=== PATIENT | male | born 1995 | race Caucasian/White ===

== ENCOUNTER 2016-11-10 10:30 | Emergency (ER) | payer SELFPAY ==
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
--- NOTE | 2016-11-10 11:52 | RAD ---
Indication: Back pain. 2 views of the thoracolumbar spine demonstrates vertebral bodies to be normal in height. No evidence of fracture is noted. Pedicles appear intact. IMPRESSION: Unremarkable thoracolumbar spine.
== END 2016-11-10 12:04 | disposition home or self-care (01) ==
LOC: UCEAST 10:30
DX: M54.5 Low back pain (principal); M54.6 Pain in thoracic spine; J45.909 Unspecified asthma, uncomplicated; Z88.0 Allergy status to penicillin; F12.90 Cannabis use, unspecified, uncomplicated; F17.210 Nicotine dependence, cigarettes, uncomplicated
CPT/HCPCS: 72080; 99202; G0463

== ENCOUNTER 2016-12-16 20:06 | Emergency (ER) | payer SELFPAY ==
[2016-12-16] MEDS ORDERED: Ammonia Inhalant* 1 EA AMP ONE (20:36)
[2016-12-16] MEDS ORDERED: Ammonia Inhalant* 1 EA AMP INH ONE (20:38)
[2016-12-16 20:56] LABS: Hematocrit 40 % (42-52); Hemoglobin 13.4 g/dl (14.0-18.0); Mean Corpuscular HGB Conc 34 g/dl (31-36); Mean Corpuscular Hemoglobin 30 pg (27-31); Mean Corpuscular Volume 90 fL (80-94); Mean Platelet Volume 10 um3 (7.4-10.4); Red Blood Count 4.43 10^6/ul (4.0-5.4); Red Cell Distribution Width 13 % (10.5-15); White Blood Count 9.3 10^3/ul (3.5-10.8)
[2016-12-16 21:08] LABS: ALT 26 U/L (7-52); AST 31 U/L (13-39); Albumin 4.3 g/dL (3.2-5.2); Alkaline Phosphatase 52 U/L (34-104); Anion Gap 8 mmol/L (2-11); BUN/Creatinine Ratio 4.5 (8-20); Blood Urea Nitrogen 4 mg/dL (6-24); CO2 Carbon Dioxide 32 mmol/L (22-32); Calcium 9.9 mg/dL (8.6-10.3); Chloride 98 mmol/L (101-111); EGFR African American 138.8 (>60); EGFR Non-African American 107.9 (>60); Globulin 3.4 g/dL (2-4); Glucose 69 mg/dL (70-100); Magnesium 2.1 mg/dL (1.9-2.7); Potassium 3.9 mmol/L (3.5-5.0); Sodium 138 mmol/L (133-145); Total Protein 7.7 g/dL (6.4-8.9)
[2016-12-16 21:11] LABS: Alcohol < 10 mg/dL (<10)
[2016-12-16] MEDS ORDERED: Dextrose 50% Syringe 50 ML* 25 GM/50 ML SYRINGE IV PUSH ONE (21:20)
[2016-12-16 21:47] LABS: Creatine Kinase 223 U/L (10-223)
[2016-12-17 01:49] VITALS: BP 116/58
--- NOTE | 2016-12-29 10:52 | ED ---
Nicolette Camarena Rebecca, scribed for Ahmet Ernst MD on 12/16/16 at 2028 . Neurological HPI - HPI Summary HPI Summary: Pt is a 21 y/o M who presents to ED c/o seizures. His friend reports he has been experiencing seizures since July, recently increasing in frequency. Reports he has been experiencing at least one seizure every day since July, with 7 yesterday and 4 today (1900, 1930 and two in the ED). Episodes typically last between a few seconds and a minute. The last seizure that lasted longer was approximately 2 months ago and spanned approximately 4 minutes. Episodes characterized as grand mal with fully body seizing. Sx aggravated by nothing, alleviated by spontaneous resolution. C/o moderate, diffuse body aches ranked 5/ 10. Confirms he slept well last night and has been drinking water today. Medications taken today are cyclobenzaprine, 0.5 hydrocodone (s/p tooth extraction) and Keflex (s/o tooth extractoin). Took hydrocodone at 1800. Has not been evaluated for seizures previously besides yesterday at [facility]. SHx IV DA (heroin), marijuana use. Friend states that episodes of seizures worsened after the pt ceased heroin use. Reports last used marijuana today. FHx epilepsy (diffuse). PMHx seizures. Treated for seizures as a child. Does not have a neurologist and has never had an EEG. Has an appointment with Dr. Dixon at [facility] this Wednesday (5 days). - History of Current Complaint Chief Complaint: EDSeizure Stated Complaint: SEIZURES Hx Obtained From: Patient Timing: Intermittent Episodes Lasting: - seconds to 1 minute Number of Seizures: 4 - Today Pain Intensity: 5 Pain Scale Used: 0-10 Numeric Character: Other: - Diffuse body aches Seizure Character: Generalized Aggravating: Nothing Alleviating: Spontanious Resolution Associated Signs and Symptoms: Positive: Seizure - Allergy/Home Medications Allergies/Adverse Reactions: Allergies Allergy/AdvReac Type Severity Reaction Status Date / Time Penicillins [PCN] Allergy Hives Verified 11/10/16 10:46 PMH/Surg Hx/FS Hx/Imm Hx Endocrine/Hematology History: Denies: Hx Diabetes, Hx Thyroid Disease Cardiovascular History: Denies: Hx Hypertension Respiratory History: Reports: Hx Asthma Denies: Hx Chronic Obstructive Pulmonary Disease (COPD) GI History: Denies: Hx Ulcer Musculoskeletal History: Reports: Hx Rheumatoid Arthritis Neurological History: Reports: Hx Seizures Infectious Disease History: Yes Infectious Disease History: Denies: Hx Hepatitis, Hx Human Immunodeficiency Virus (HIV), Traveled Outside the [place] in Last 30 Days - Family History Known Family History: Positive: Other - Epilepsy (diffuse) - Social History Alcohol Use: Rare Substance Use Type: Reports: Heroin, Marijuana Smoking Status (MU): Light Every Day Tobacco Smoker Type: Cigarettes Review of Systems Negative: Fever, Chills Negative: Erythema Negative: Sore Throat Negative: Chest Pain Negative: Shortness Of Breath, Cough Negative: Abdominal Pain, Vomiting Negative: dysuria, hematuria Negative: Myalgia, Edema Negative: Rash Neurological: Other - 4 seizures today; Negative dizziness All Other Systems Reviewed And Are Negative: Yes Physical Exam - Summary Physical Exam Summary: Constitutional: Well-developed, Well-nourished, Alert. (-) Distressed Skin: Warm, Dry, IV track schreiber and scars HENT: Normocephalic; Atraumatic Eyes: Conjunctiva normal, pinpoint pupils Neck: Musculoskeletal ROM normal neck. (-) JVD, (-) Stridor, (-) Tracheal deviation Cardio: Rhythm regular, rate normal, Heart sounds normal; Intact distal pulses; The pedal pulses are 2+ and symmetric. Radial pulses are 2+ and symmetric. (-) Murmur Pulmonary/Chest wall: Effort normal. (-) Respiratory distress, (-) Wheezes, (-) Rales Abd: Soft, (-) Tenderness, (-) Distension, (-) Guarding, (-) Rebound Musculoskeletal: (-) Edema Lymph: (-) Cervical adenopathy Neuro: Alert, Oriented x3 Psych: Mood and affect Normal Triage Information Reviewed: Yes Vital Signs On Initial Exam: Initial Vitals Temp Pulse Resp BP Pulse Ox 97.8 F 71 18 116/59 100 12/16/16 20:08 12/16/16 20:08 12/16/16 20:08 12/16/16 20:08 12/16/16 20:08 Vital Signs Reviewed: Yes Diagnostics - Vital Signs Vital Signs Temp Pulse Resp BP Pulse Ox 12/16/16 20:08 97.8 F 71 18 116/59 100 - Laboratory Result Diagrams: 12/16/16 20:27 12/16/16 20:27 Lab Statement: Any lab studies that have been ordered have been reviewed, and results considered in the medical decision making process. Re-Evaluation - Re-Evaluation First Eval Re-Evaluation Time: 20:42 Change: Unchanged Comment: Pt had 2 more seizures in the ED. Friend showed a video of the pt from september in the middle of a seizure that lasted about 4 minutes. Course/Dx - Course Assessment/Plan: Pt is a 21 y/o M who presents to ED c/o seizures increasingin frequency since July, with 4 today. Seizures consist of full body movements and typically last between seconds and 1 minute. From documentation provided by [facility] form his visit yesterday: Reported "seizures ever since he stopped using intravenous drugs," he stated "that he can have narcotic pain meds that have Tylenol in them because he does not get addicted to narcotics with Tylenol," he "complains of all over body aches that are severe " and requested pain medications in the form of narcotics. At [facility] , pt had a negative head CT and signed himself out AMA. Discussed care of pt with Dr. Mccallum who advised outpatient management. Pt will be D/C to home with Dx of hypoglycemia and convulsions with a follow up with Dr. Mccallum. - Diagnoses Provider Diagnoses: Hypoglycemia, Convulsions - Physician Notifications Discussed Care of Patient With: Dr. Mccallum, neurologist. Explained the case and gave pertinent lab results. She did not consider a BG of 69 to be hypoglycemic. Advised outpatient management due to 4 month history of events and lack of epileptic features of movements. Time Discussed With Above Provider: 21:35 Discharge - Discharge Plan Condition: Stable Disposition: HOME Patient Education Materials: Non-diabetic Hypoglycemia (ED) Referrals: Tara Mccallum MD [Medical Doctor] - 5 Days (Follow up in 3-5 days. ) The documentation as recorded by the Nicolette cantu Rebecca accurately reflects the service I personally performed and the decisions made by me, Ahmet Ernst MD.
== END 2016-12-16 22:33 | disposition home or self-care (01) ==
LOC: ED 20:06
DX: G40.909 Epilepsy, unspecified, not intractable, without status epilepticus (principal); E16.2 Hypoglycemia, unspecified; J45.909 Unspecified asthma, uncomplicated; M06.9 Rheumatoid arthritis, unspecified; Z88.0 Allergy status to penicillin; F17.210 Nicotine dependence, cigarettes, uncomplicated
CPT/HCPCS: 36415; 80053; 80320; 82550; 83605; 83735; 85025; 85610; 99282; A9270-GY; G0480

== ENCOUNTER → 2017-01-22 09:25 | Emergency (ER) | payer OTHER ==
[~2017-01-22 09:25] MED LIST: HYDROcodone/ACETAMIN 5-325 MG* 1 TAB PO ONE; LORazepam INJ* 2 MG/ML 1 ML VIAL IV ONE; NS 0.9% 1000 ML* 1,000 ML IV ONE; Nicotine GUM* 2 MG PO PRN; Omeprazole CAP* 20 MG PO ONE; oxyCODONE/Acetamin 5/325 MG* TAB PO ONE
[2017-01-22 10:21] LABS: Hematocrit 41 % (42-52); Hemoglobin 13.5 g/dl (14.0-18.0); Mean Corpuscular HGB Conc 33 g/dl (31-36); Mean Corpuscular Hemoglobin 30 pg (27-31); Mean Corpuscular Volume 92 fL (80-94); Mean Platelet Volume 10 um3 (7.4-10.4); Red Blood Count 4.44 10^6/ul (4.0-5.4); Red Cell Distribution Width 14 % (10.5-15); White Blood Count 9.1 10^3/ul (3.5-10.8)
[2017-01-22 10:24] LABS: Urine Bilirubin Negative (Negative); Urine Glucose Negative (Negative); Urine Nitrite Negative (Negative)
[2017-01-22 11:00] LABS: Acetaminophen < 15 mcg/mL; Alcohol < 10 mg/dL (<10); Salicylate < 2.50 mg/dL (<30)
[2017-01-22 11:09] LABS: TSH (Thyroid Stimulating Horm) 0.48 mcIU/mL (0.34-5.60)
[2017-01-22 11:47] LABS: ALT 30 U/L (7-52); AST 24 U/L (13-39); Albumin 4.4 g/dL (3.2-5.2); Alkaline Phosphatase 59 U/L (34-104); Anion Gap 5 mmol/L (2-11); BUN/Creatinine Ratio 8.2 (8-20); Blood Urea Nitrogen 7 mg/dL (6-24); C Reactive Protein 25.97 mg/L (< 5.00); CO2 Carbon Dioxide 24 mmol/L (22-32); Chloride 107 mmol/L (101-111); Creatine Kinase 102 U/L (10-223); EGFR African American 146.3 (>60); EGFR Non-African American 113.8 (>60); Globulin 3.2 g/dL (2-4); Glucose 120 mg/dL (70-100); Lipase 16 U/L (11.0-82.0); Sodium 136 mmol/L (133-145); Total Protein 7.6 g/dL (6.4-8.9)
[2017-01-22 12:33] VITALS: BP 102/64
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
[2017-01-22 14:11] LABS: Benzodiazepine Urine Screen Presumptive Positive (None Detect)
--- NOTE | 2017-01-22 14:49 | ED ---
Subhash Camarena Alfonso, scribed for Hernán Cobb MD on 01/22/17 at 1448 . Progress - Results/Orders Results/Orders: CT BRAIN : NO ACUTE INTRACRANIAL PATHOLOGY. CT MAXILLOFACIAL : NO FACIAL FRACTURE Course/Dx - Course Course Of Treatment: NO CRITICAL CARE TIME. PATIENT HAD EEG 01/01/17. HE HAD SEIZURE-LIKE ACTIVITY DURING THE EEG WITH NO EPILEPTIFORM ACTIVITIES DURING THE EVENT, CONSISTENT WITH A NON-EPILEPTIC EVENT, PSEUDOSEIZURES. DISCUSSED TODAYS RESULTS WITH PATIENT. DISCUSSED WITH DR ODELL, NEUROLOGY. DISCHARGE HOME STABLE. - Diagnoses Provider Diagnoses: Seizure-like activity, Head injury, Injury of face - Provider Notifications Time Discussed With Above Provider: 09:28 Instructed by Provider To: Other - Consulted Dr. Odell (Neurologist) who states having reviewed EEG results from 01/01/17 this study does not need to be repeated. Consulted Dr. Odell again at 1333 who states the patient can be discharged. The documentation as recorded by the Subhash cantu Alfonso accurately reflects the service I personally performed and the decisions made by me, Hernán Cobb MD.
== END | disposition home or self-care (01) ==
LOC: ED 09:25
DX: R56.9 Unspecified convulsions (principal); S09.90XA Unspecified injury of head, initial encounter; S09.93XA Unspecified injury of face, initial encounter; Y09 Assault by unspecified means; Y93.9 Activity, unspecified; Y92.9 Unspecified place or not applicable; F17.210 Nicotine dependence, cigarettes, uncomplicated
CPT/HCPCS: 36415; 70450; 70486; 80053; 80307; 80320; 80329; 81003; 82550; 82553; 83605; 83690; 83735; 83880; 84443; 84484; 85025; 85610; 85730; 86140; 96374; 99283; A9270-GY; G0480; J2060